=== PATIENT | male | born 1960 | race Caucasian/White ===

== ENCOUNTER 2017-09-23 08:24 | Observation (INO) ==
[2017-09-23] MEDS ORDERED: HYDROmorphone PF Inj 1 MG/ML Ampul IV.PUSH ONE ×2 (08:41→13:02)
[2017-09-23 08:45] LABS: Baso % (Auto) 0.5 % (0.0-2.0); Eos # (Auto) 0.5 th/mm3 (0.0-0.4); Eos % (Auto) 5.7 % (0.0-4.0); Hemoglobin 16.3 gm/dL (13.0-17.0); Lymph % (Auto) 21.7 % (9.0-44.0); Mean Corpuscular HGB Conc 33.3 % (32.0-36.0); Mean Corpuscular Hemoglobin 31.5 pg (27.0-34.0); Mean Corpuscular Volume 94.7 fL (80.0-100.0); Mean Platelet Volume 9.4 fL (7.0-11.0); Mono # (Auto) 0.6 th/mm3 (0.0-0.9); Mono % (Auto) 7.1 % (0.0-8.0); Platelet Count 190 th/mm3 (150-450); Red Blood Count 5.18 mil/mm3 (4.50-5.90); Red Cell Distribution Width 12.5 % (11.6-17.2); White Blood Count 9.1 th/mm3 (4.0-11.0)
[2017-09-23 08:53] LABS: Chloride 102 meq/L (98-107); Potassium 3.9 meq/L (3.5-5.1); Sodium 138 meq/L (136-145)
[2017-09-23 08:56] LABS: Calcium 9.4 mg/dL (8.5-10.1)
[2017-09-23 08:57] LABS: Albumin 4.3 g/dL (3.4-5.0); Anion Gap 7 meq/L (5-15); Blood Urea Nitrogen 9 mg/dL (7-18); Carbon Dioxide 29.1 meq/L (21.0-32.0); Glucose,Random 133 mg/dL (74-106); Magnesium 2.1 mg/dL (1.5-2.5)
[2017-09-23 08:58] LABS: Activated Partial Thrombo Time 29.8 sec (24.3-30.1); Prothrombin Time 9.7 sec (9.8-11.6)
[2017-09-23 09:00] LABS: Alanine Aminotransferase 27 U/L (12-78); Aspartate Aminotransferase 16 U/L (15-37); Glomerular Filtration Rate 63 mL/min (>89)
[2017-09-23 09:02] LABS: Total Protein 7.9 g/dL (6.4-8.2)
[2017-09-23 09:03] LABS: Alkaline Phosphatase 91 U/L (45-117)
[2017-09-23 09:04] LABS: Creatine Kinase 167 U/L (39-308)
[2017-09-23 09:05] LABS: Lipase 218 U/L (73-393)
[2017-09-23 09:17] LABS: Creatine Kinase MB 0.9 ng/mL (0.5-3.6)
--- NOTE | 2017-09-23 09:41 | XR ---
EXAM DATE: 09/23/2017 8:51 AM EDT AGE/SEX: 56 years / Male INDICATIONS: Chest pain and nausea today. CLINICAL DATA: This is the patient's initial encounter. Patient reports that signs and symptoms have been present for 1 day and indicates a pain score of 10/10. MEDICAL/SURGICAL HISTORY: None. None. COMPARISON: No prior exams available for comparison. FINDINGS: A single AP view of the chest demonstrates the lungs to be symmetrically aerated without evidence of mass, infiltrate or effusion. The cardiomediastinal contours are unremarkable. Osseous structures a re intact. CONCLUSION: No acute cardiopulmonary process Electronically signed by: Rohit Dee MD 09/23/2017 9:39 AM EDT
--- NOTE | 2017-09-23 12:48 | CT ---
EXAM DATE: 09/23/2017 12:39 PM EDT AGE/SEX: 56 years / Male INDICATIONS: Upper abdominal pain. CLINICAL DATA: This is the patient's initial encounter. Patient reports that signs and symptoms have been present for 1 day and indicates a pain score of 9/10. MEDICAL/SURGICAL HISTORY: None. Appendectomy. ORAL CONTRAST: No oral contrast ingested. RADIATION DOSE: 21.46 CTDI (mGy) COMPARISON: No prior exams available for comparison. TECHNIQUE: Multiple contiguous axial images were obtained through the abdomen and pelvis following b olus infusion of 95 ml Omnipaque 350 (iohexol) nonionic water-soluble contrast as a single exam dos e. No oral contrast ingested. Using automated exposure control and adjustment of the mA and/or kV ac cording to patient size, radiation dose was kept as low as reasonably achievable to obtain optimal di agnostic quality images. DICOM format image data is available electronically for review and comparis on. FINDINGS: Lower Lungs: Mild bibasilar atelectasis. Liver: The liver has a homogeneous density without space-occupying lesion. There is no dilation of th e biliary tree. Possible small stone in the gallbladder. Otherwise, the gallbladder is unremarkable. No inflammatory changes. Spleen: Homogeneous density without enlargement. Pancreas: Unremarkable without mass or calcification. Kidneys: Normal in size and shape. No evidence of mass or hydronephrosis. No calcified renal stones are demonstrated. The ureters are nondilated. Adrenal Glands: Unremarkable. Aorta: The aorta and proximal iliac vessels are grossly unremarkable without aneurysmal dilation. Bowel/Mesentery: The bowel loops are grossly unremarkable. The cecum and sigmoid colon have a normal configuration. A few scattered diverticula are seen along the sigmoid colon. No inflammatory changes are demonstrated. There is stool throughout the colon. Abdominal Wall: Intact. Retroperitoneum: No evidence of adenopathy in the retrocrural, para-aortic, or deep pelvic regions. Bladder: Contours are smooth. Reproductive Organs: No abnormal masses or calcifications seen. Inguinal: The inguinal region is unremarkable without evidence of adenopathy. Bony Structures: Primary degenerative changes with some curvature of the lumbar spine to the left. CONCLUSION: 1. Possible small gallstone in the gallbladder. No biliary tract obstruction. 2. A few scattered diverticula along the sigmoid colon. 3. Otherwise, unremarkable exam for patient's age. Electronically signed by: Mamadou Greco MD 09/23/2017 12:47 PM EDT
[2017-09-23] MEDS ORDERED: Diatrizoate Meglum/Diatrizoate Sod Liq 9 ML UDC PO ONE (13:15)
[2017-09-23] MEDS ORDERED: Acetaminophen 325 MG Tablet PO PRN (15:20)
[2017-09-23] MEDS ORDERED: Bisacodyl 10 MG Supp RECTAL PRN (15:20)
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
[2017-09-23] MEDS: Sod Chloride 0.9% Inj 1,000 ML IV.CONT SCH (16:25)
--- NOTE | 2017-09-23 16:40 | ECG ---
Date Performed: 09/23/2017 Time Performed: 08:32:05 PTAGE: 56 years EKG: Sinus rhythm WITH SINUS ARRHYTHMIA NORMAL ECG NO PREVIOUS TRACING DOCTOR: Beth Webster Interpretating Date/Time 09/23/2017 16:38:26
[2017-09-23] MEDS: HYDROmorphone PF Inj 1 MG/ML Ampul IV.PUSH PRN ×2 (17:55→23:12)
[2017-09-23] MEDS: Senna/Docusate Sodium 8.6/50 MG Tablet PO SCH (21:25)
[2017-09-24] MEDS: Sod Chloride 0.9% Inj 1,000 ML IV.CONT SCH ×3 (01:23→23:08)
[2017-09-24 06:52] LABS: Baso % (Auto) 0.6 % (0.0-2.0); Eos # (Auto) 0.3 th/mm3 (0.0-0.4); Eos % (Auto) 3.5 % (0.0-4.0); Hematocrit 42.6 % (39.0-51.0); Hemoglobin 14.7 gm/dL (13.0-17.0); Lymph # (Auto) 1.5 th/mm3 (1.0-4.8); Lymph % (Auto) 19.5 % (9.0-44.0); Mean Corpuscular HGB Conc 34.6 % (32.0-36.0); Mean Corpuscular Hemoglobin 32.5 pg (27.0-34.0); Mean Corpuscular Volume 93.9 fL (80.0-100.0); Mean Platelet Volume 9.6 fL (7.0-11.0); Mono # (Auto) 0.7 th/mm3 (0.0-0.9); Mono % (Auto) 9.1 % (0.0-8.0); Neut # (Auto) 5.4 th/mm3 (1.8-7.7); Neut % (Auto) 67.3 % (16.0-70.0); Platelet Count 174 th/mm3 (150-450); Red Blood Count 4.53 mil/mm3 (4.50-5.90); Red Cell Distribution Width 12.5 % (11.6-17.2); White Blood Count 7.9 th/mm3 (4.0-11.0)
[2017-09-24 07:02] LABS: Potassium 3.8 meq/L (3.5-5.1)
[2017-09-24 07:21] LABS: Calcium 8.4 mg/dL (8.5-10.1); Carbon Dioxide 27.1 meq/L (21.0-32.0)
--- NOTE | 2017-09-24 09:21 | P.PNIM ---
Subjective Interval history: Follow-up abdominal pain, nausea and vomiting. Patient seen and examined, lying in bed comfortably no apparent distress. Patient is a admit to intermittent abdominal pain worse with movement. Gallbladder ultrasound done today, showing dilated duct. Consult placed to gastroenterology, input and recommendations pending. Likely ERCP. Vital signs stable. Afebrile. Continue to monitor. Physical Exam Vital signs: Vital Signs 09/23/17 09:25 09/23/17 09:28 09/23/17 09:49 Temperature Pulse Rate 58 L 67 Respiratory Rate 16 16 Blood Pressure 155/88 H Pulse Oximetry 100 09/23/17 10:53 09/23/17 11:41 09/23/17 12:05 Temperature Pulse Rate 83 64 85 Respiratory Rate 16 16 Blood Pressure 177/81 H 167/89 H Pulse Oximetry 98 98 09/23/17 13:00 09/23/17 14:00 09/23/17 14:13 Temperature Pulse Rate 85 65 Respiratory Rate 16 16 16 Blood Pressure 175/100 H 141/81 H Pulse Oximetry 98 97 09/23/17 14:19 09/23/17 15:07 09/23/17 15:45 Temperature Pulse Rate 68 93 H Respiratory Rate 16 16 Blood Pressure 164/87 H 161/98 H Pulse Oximetry 97 97 96 09/23/17 16:00 09/23/17 18:00 09/23/17 18:25 Temperature 97.4 F L Pulse Rate 63 70 Respiratory Rate 18 18 Blood Pressure 165/87 H Pulse Oximetry 96 96 09/23/17 20:00 09/23/17 20:30 09/24/17 00:00 Temperature 98.2 F 98.1 F Pulse Rate 75 78 Respiratory Rate 16 16 Blood Pressure 138/80 120/75 Pulse Oximetry 95 95 97 09/24/17 04:00 Temperature 99 F Pulse Rate 75 Respiratory Rate 16 Blood Pressure 115/63 Pulse Oximetry 98 Intake & Output 09/23/17 09/24/17 09/24/17 18:59 06:59 18:59 Intake Total 340 / 340 1000 / 1000 Balance 340 / 340 1000 / 1000 Weight 72 kg Intake: IV 1000 / 1000 NS Inj 1,000 ML @ 100 mls/hr IV 1000 / 1000 .CONT .Q10H [facility] Rx#:[id number] Oral 100 / 100 0 / 0 Oral Supplement 240 / 240 Other: Post Void Residual 300 Date of Last Bowel Movement 09/23/17 Weight On Admission 72 kg Narrative: GENERAL: Well-developed, well-nourished patient in NAD. SKIN: Warm and dry. No rash. HEAD: Normocephalic. Atraumatic. EYES: Pupils equal and round. No scleral icterus. No injection or drainage. ENT: No nasal bleeding or discharge. Mucous membranes pink and moist. NECK: Supple. Trachea midline. CARDIOVASCULAR: Regular rate and rhythm. S1, S2 noted. No murmur appreciated. RESPIRATORY: No accessory muscle use. Clear to auscultation. Breath sounds equal bilaterally. GASTROINTESTINAL: Abdomen soft, nondistended. Normoactive bowel sounds x4. Mild tenderness to palpation in right upper quadrant and right lower quadrant. MUSCULOSKELETAL: No obvious deformities. Extremities without clubbing, cyanosis , or edema. NEUROLOGICAL: Awake and alert. No obvious cranial nerve deficits. Motor grossly within normal limits. 5/5 muscle strength in bilateral upper and lower extremities. Normal speech. PSYCHIATRIC: Appropriate mood and affect; insight and judgment normal. Results - Labs CBC & Chem 7: 09/24/17 06:34 09/24/17 06:34 Laboratory Results - last 24 hr 09/24/17 09/24/17 06:34 06:34 CBC w Diff Auto diff final WBC 7.9 RBC 4.53 Hgb 14.7 Hct 42.6 MCV 93.9 MCH 32.5 MCHC 34.6 RDW 12.5 Plt Count 174 MPV 9.6 Neut % (Auto) 67.3 Lymph % (Auto) 19.5 [place] % (Auto) 9.1 H Eos % (Auto) 3.5 Baso % (Auto) 0.6 Neut # (Auto) 5.4 Lymph # (Auto) 1.5 [place] # (Auto) 0.7 Eos # (Auto) 0.3 Baso # (Auto) 0.0 WBC Differential . Differential Comment . Sodium 140 Potassium 3.8 Chloride 105 Carbon Dioxide 27.1 Anion Gap 8 BUN 8 Creatinine 1.20 Estimated GFR 63 L Random Glucose 104 Calcium 8.4 L D - Imaging Impressions Chest X-Ray 09/23/17 08:34 CONCLUSION: No acute cardiopulmonary process Abdomen/Pelvis CT 09/23/17 10:15 CONCLUSION: 1. Possible small gallstone in the gallbladder. No biliary tract obstruction. 2. A few scattered diverticula along the sigmoid colon. 3. Otherwise, unremarkable exam for patient's age. Assessment and Plan - Assessment (1) Abdominal pain Code(s): R10.9 - Unspecified abdominal pain Status: Acute (2) Nausea and vomiting Code(s): R11.2 - Nausea with vomiting, unspecified Status: Acute - Plan This is a 56-year-old male patient with: Abdominal pain with associated nausea and vomiting -Unknown etiology. -Liver enzymes reviewed, normal. -Abdominal CT reviewed showing possible small gallstone. No biliary tract obstruction. Otherwise unremarkable. -Chest x-ray reviewed showing no acute disease. -Gallbladder ultrasound reviewed showing dilated common bile duct 12 mm. Gallstones present. Consult placed to gastroenterology, input recommendations pending. Likely will need ERCP. - Control nausea, Zofran available as needed. - Dilaudid IV available as needed per pain scale. Chest pain, atypical likely related to above. Resolved. - Initial troponin flat. - EKG reviewed showing controlled heart rate, no ST changes to indicate ischemia. No arrhythmias. - Continue cardiac telemetry, monitor for any arrhythmias. No arrhythmias overnight. - Was given aspirin in ED. Will start on daily aspirin. Hypertension: Likely secondary to pain. Will monitor blood pressure trends. Alcohol abuse: Encouraged cessation. DVT prophylaxis: SCDs. Ambulation. Discharge Planning: Awaiting clinical improvement. Gastroenterology consulted. (1) Abdominal pain Qualifiers: Abdominal location: epigastric Qualified Code(s): R10.13 - Epigastric pain (2) Nausea and vomiting Qualifiers: Vomiting type: unspecified Vomiting Intractability: intractable Qualified Code(s): R11.2 - Nausea with vomiting, unspecified
[2017-09-24] MEDS: Senna/Docusate Sodium 8.6/50 MG Tablet PO SCH ×2 (10:44→20:26)
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
[2017-09-24] MEDS: HYDROmorphone PF Inj 1 MG/ML Ampul IV.PUSH PRN ×2 (16:16→20:54)
--- NOTE | 2017-09-24 18:56 | MB ---
cc: Heath Shepard MD DATE: 09/24/2017 REFERRING PHYSICIAN: Dr. Johnson. REASON FOR REFERRAL: Abdominal pain. Thank you for the consultation. HISTORY OF PRESENT ILLNESS: A 56-year-old gentleman who has been in good health until recently about few days ago, started having abdominal pain. He said the pain started in the right lower quadrant, but then he stated that it radiated to the mid abdomen and then to the left lower quadrant and then to his mid epigastric area. The patient felt that the pain was stabbing, knife-like, sharp, 10/10 and associated with some nausea, no vomiting, no rectal bleeding, no sign of gastrointestinal bleed, no other symptoms and he came to the emergency room. Since then, he was given some pain medication, which gave him relief. He still has some discomfort, but much better than before. The patient stated was not related to food. The pain was alleviated with pain medication. He had some vomiting, but no hematemesis. PAST SURGICAL HISTORY: Significant for appendectomy. He had a surgery to his mandibular area. FAMILY HISTORY: Significant for pancreatitis, negative otherwise. PAST MEDICAL HISTORY: No other medical problems. Does not take medication. REVIEW OF SYSTEMS: All 12-point negative except HPI. SOCIAL HISTORY: Positive for half pack a day. Occasional alcohol, maybe 1-2 beers a day. No drugs. No recent travel. ALLERGIES: CODEINE. MEDICATIONS: None. REVIEW OF SYSTEMS: All 12-point negative except for HPI. PHYSICAL EXAMINATION: GENERAL: Alert, oriented, in no acute distress. VITAL SIGNS: Stable at this time. HEENT: Pupils round, reactive to light. NECK: Supple. CHEST: Clear to auscultation and percussion. CARDIAC: Regular rate and rhythm. No murmur or gallops. ABDOMEN: Soft, minimal tenderness in the epigastric area and left lower quadrant. No hepatosplenomegaly. The patient is morbidly obese. EXTREMITIES: No edema, clubbing or cyanosis. NEUROLOGIC: Alert and oriented. No abnormality. No focal deficit. PSYCHIATRIC: Psychologically appropriate. LABORATORY DATA: Normal liver function tests including total bilirubin of 0.5, AST 16, ALT 27, alkaline phosphatase 91, lipase 218. INR 1.0. CBC completely normal with white blood cell 7.9, hemoglobin 14.7. IMAGING STUDIES: CT scan showed possible small gallstone in the gallbladder. No biliary tract obstruction. Some diverticulosis, otherwise unremarkable. No dilation in the biliary tree on the CT scan. The patient had ultrasound which showed possible dilation of the common bile duct with possible cholecystitis and thickening of the gallbladder wall. ASSESSMENT AND PLAN: A 56-year-old gentleman with abdominal pain, questionable etiology, could be that he passed a stone and mild pancreatitis. He does not have elevation of the liver function tests and the CT scan did not show dilation. The ultrasound showed questionable dilation, but it seems that it was technically difficult to evaluate the duct completely. Because of that, I would like to perform an MRCP to evaluate the common bile duct more thoroughly and accurately before committing the patient for an ERCP. Currently, the patient is doing better. His symptoms are improving, so we can give him clear liquid pending the MRCP. If the MRCP show dilation of the biliary tree or any abnormality suspicious for stones, then he will need to be transferred to the main hospital for an ERCP. The patient understands the plan and we will follow up with you. MD SONU Alatorre/YOSELIN , 06:36 PM , 06:55 PM
[2017-09-25] MEDS: HYDROmorphone PF Inj 1 MG/ML Ampul IV.PUSH PRN ×2 (06:40→23:42)
[2017-09-25] MEDS: Senna/Docusate Sodium 8.6/50 MG Tablet PO SCH ×2 (09:20→20:26)
[2017-09-25] MEDS: Sod Chloride 0.9% Inj 1,000 ML IV.CONT SCH (09:25)
--- NOTE | 2017-09-25 10:36 | MR ---
EXAM DATE: 09/25/2017 10:28 AM EDT AGE/SEX: 56 years / Male INDICATIONS: Abdominal pain. Nausea and vomiting. CLINICAL DATA: This is the patient's initial encounter. Patient reports that signs and symptoms have been present for 1 day and indicates a pain score of 6/10. MEDICAL/SURGICAL HISTORY: None. Appendectomy. COMPARISON: No prior exams available for comparison. TECHNIQUE: Multiplanar, multisequence images of the abdomen were obtained without contrast including dedicated cholangiographic images. FINDINGS: The liver and spleen are normal in size and no focal defects are identified. There are multiple gall stones within the gallbladder without wall thickening or pericholecystic fluid the largest measuring 4 mm. The pancreas demonstrates no evidence of mass and there is no dilatation of the pancreatic duct . Examination of biliary tree with multiplanar and 3-D reconstruction demonstrates no evidence of com mon duct stone. No intrahepatic or extra hepatic ductal dilatation is identified. The pancreatic duct is unremarkable. The adrenal glands and kidneys appear normal bilaterally. No hydronephrosis or mas s lesions are identified. CONCLUSION: 1. Cholelithiasis without common duct stone Electronically signed by: Chicho Martinez MD 09/25/2017 10:34 AM EDT
--- NOTE | 2017-09-25 11:51 | P.PNIM ---
Subjective Interval history: Follow-up abdominal pain and cholelithiasis. Patient seen and examined, lying in bed comfortably no apparent distress. Symptoms have improved. MRCP done today showing no common bile duct stone although with cholelithiasis. Gastroenterology following. Vital signs stable. Afebrile. Physical Exam Vital signs: Vital Signs 09/24/17 12:00 09/24/17 16:00 09/24/17 16:46 Temperature 97.7 F 97.7 F Pulse Rate 60 66 Respiratory Rate 18 18 18 Blood Pressure 123/71 116/68 Pulse Oximetry 94 L 95 09/24/17 20:00 09/24/17 20:58 09/24/17 21:24 Temperature 98.0 F Pulse Rate 84 Respiratory Rate 20 18 Blood Pressure 127/71 Pulse Oximetry 97 95 09/25/17 00:00 09/25/17 04:12 09/25/17 07:59 Temperature 98.7 F 98.8 F 96.9 F L Pulse Rate 77 74 69 Respiratory Rate 18 18 20 Blood Pressure 130/75 131/61 120/73 Pulse Oximetry 94 L 96 93 L 09/25/17 11:25 Temperature 97.6 F Pulse Rate 58 L Respiratory Rate 20 Blood Pressure 131/76 Pulse Oximetry 95 Intake & Output 09/24/17 09/25/17 09/25/17 18:59 06:59 18:59 Intake Total 1700 / 1700 1000 / 1000 1000 / 1000 Output Total 550 / 550 Balance 1700 / 1700 450 / 450 1000 / 1000 Weight 180.34 kg Intake: IV 1000 / 1000 1000 / 1000 1000 / 1000 NS Inj 1,000 ML @ 100 mls/hr IV 1000 / 1000 1000 / 1000 1000 / 1000 .CONT .Q10H [facility] Rx#:[id number] Oral 100 / 100 Oral Supplement 600 / 600 Output: Urine 550 / 550 Other: # Voids 3 Narrative: GENERAL: Well-developed, well-nourished patient in NAD. SKIN: Warm and dry. No rash. HEAD: Normocephalic. Atraumatic. EYES: Pupils equal and round. No scleral icterus. No injection or drainage. ENT: No nasal bleeding or discharge. Mucous membranes pink and moist. NECK: Supple. Trachea midline. CARDIOVASCULAR: Regular rate and rhythm. S1, S2 noted. No murmur appreciated. RESPIRATORY: No accessory muscle use. Clear to auscultation. Breath sounds equal bilaterally. GASTROINTESTINAL: Abdomen soft, nondistended. Normoactive bowel sounds x4. No tenderness to palpation. MUSCULOSKELETAL: No obvious deformities. Extremities without clubbing, cyanosis , or edema. NEUROLOGICAL: Awake and alert. No obvious cranial nerve deficits. Motor grossly within normal limits. 5/5 muscle strength in bilateral upper and lower extremities. Normal speech. PSYCHIATRIC: Appropriate mood and affect; insight and judgment normal. - Constitutional no acute distress - Routine HEENT Exam Head: Present: normocephalic Eye: Present: EOMI ENT: Present: mucous membranes moist - Routine Neck Exam Present: supple Results - Labs CBC & Chem 7: 09/24/17 06:34 09/24/17 06:34 - Imaging Impressions Cholangiopancreatography MRI 09/25/17 00:00 CONCLUSION: 1. Cholelithiasis without common duct stone Assessment and Plan - Assessment (1) Abdominal pain Code(s): R10.9 - Unspecified abdominal pain Status: Acute (2) Nausea and vomiting Code(s): R11.2 - Nausea with vomiting, unspecified Status: Acute - Plan This is a 56-year-old male patient with: Abdominal pain with associated nausea and vomiting -Unknown etiology. Possibly related to cholelithiasis. -Liver enzymes reviewed, normal. -Abdominal CT reviewed showing possible small gallstone. No biliary tract obstruction. Otherwise unremarkable. -Chest x-ray reviewed showing no acute disease. -Gallbladder ultrasound reviewed showing dilated common bile duct 12 mm. Gallstones present. Consult placed to gastroenterology, appreciate input and recommendations. MRCP done today showing cholelithiasis without common duct stone. - Control nausea, Zofran available as needed. - Dilaudid IV available as needed per pain scale. Will wean. Chest pain, atypical likely related to above. Resolved. - Troponin flat. - EKG reviewed showing controlled heart rate, no ST changes to indicate ischemia. No arrhythmias. - Continue cardiac telemetry, monitor for any arrhythmias. No arrhythmias overnight. - Was given aspirin in ED. Will start on daily aspirin. Hypertension: Likely secondary to pain. Will monitor blood pressure trends. Alcohol abuse: Encouraged cessation. No signs of withdrawal. Pleasant. DVT prophylaxis: SCDs. Ambulation. Discharge Planning: Awaiting clinical improvement and further gastroenterology recs. (1) Abdominal pain Qualifiers: Abdominal location: epigastric Qualified Code(s): R10.13 - Epigastric pain (2) Nausea and vomiting Qualifiers: Vomiting type: unspecified Vomiting Intractability: intractable Qualified Code(s): R11.2 - Nausea with vomiting, unspecified
--- NOTE | 2017-09-25 16:07 | P.DS ---
Date of admission: 09/23/17 14:41 Primary care physician: No Primary Care Physician Brief History from admission: This is a 56-year-old male patient with no known medical history presented to the ED with complaints of abdominal pain, nausea and vomiting. Patient states roughly around 4 AM this morning he woke out of sleep with severe right lower quadrant abdominal pain that radiated to his mid epigastric area. Patient states that the pain was knifelike and stabbing in nature, was constant and worsens when he ate or drink anything. Patient rates the pain a 10 out of 10 on pain scale. He states that he related to his symptoms initially to gas, state he took a couple Pepto Bismol tablets which were not effective to relieve his symptoms. Patient denies any diarrhea. Last bowel movement was this morning. He denies any blood or black stools. Denies any recent fever, chills , cough, shortness of breath, dysuria. Patient denies any history of colonoscopy or EGD in the past. Does admit to hemorrhoids. Does not follow with the PCP. Does not have any medical problems. Has a history of appendectomy as a child. Smokes half pack per day cigarettes since his teen years. Patient symptoms have improved since presentation in the ED and pain medication. Patient also admits to associated chest discomfort this morning. He states that the chest discomfort was likely related to the mid epigastric pain, was burning in nature, associated with shortness of breath and diaphoresis and resolved at the current time. Denies any history of cardiovascular disease. Patient's EKG on presentation is sinus rhythm, no ST changes to indicate any ischemia. Does admit to binge drinking, states he drank several alcoholic drinks prior to presentation. DS: Diagnosis - Discharge Diagnosis (1) Abdominal pain Status: Acute (2) Nausea and vomiting Status: Acute DS: Summary Hospital Course: This is a 56-year-old male patient with abdominal pain with associated nausea and vomiting. Symptoms possibly related to cholelithiasis. Liver enzymes reviewed, normal. Abdominal CT reviewed showing possible small gallstone. No biliary tract obstruction. Otherwise unremarkable. Chest x-ray reviewed showing no acute disease. Gallbladder ultrasound reviewed showing dilated common bile duct 12 mm. Gallstones present. Gastroenterology saw patient during hospitalization. MRCP done showing cholelithiasis without common duct stone. Zofran was given for nausea. Dilaudid was also given for pain per pain scale. Patient did have some chest pain that was atypical and resolved troponin flat. EKG reviewed showing controlled heart rate, no ST changes to indicate ischemia. No arrhythmias. No arrhythmias started on daily aspirin. Had some hypertension during hospitalization. Likely secondary to pain. This stabilized prior to discharge. Patient does have history of alcohol abuse. Encourage cessation. No signs of withdrawal during hospitalization. All symptoms have resolved. Tolerating p.o. intake well. Will discharge home to follow-up with GI as well as PCP. - Time Spent with Patient Total time spent providing and/or coordinating discharge services: Greater than 30 minutes - Quality: VTE Deep Vein Thrombosis/Pulmonary Embolism Present on Admission: No Exam Vital signs: Vital Signs 09/24/17 16:46 09/24/17 20:00 09/24/17 20:58 Temperature 98.0 F Pulse Rate 84 Respiratory Rate 18 20 Blood Pressure 127/71 Pulse Oximetry 97 95 09/24/17 21:24 09/25/17 00:00 09/25/17 04:12 Temperature 98.7 F 98.8 F Pulse Rate 77 74 Respiratory Rate 18 18 18 Blood Pressure 130/75 131/61 Pulse Oximetry 94 L 96 09/25/17 07:59 09/25/17 11:25 09/25/17 14:32 Temperature 96.9 F L 97.6 F Pulse Rate 69 58 L Respiratory Rate 20 20 Blood Pressure 120/73 131/76 Pulse Oximetry 93 L 95 96 09/25/17 15:10 Temperature 97.2 F L Pulse Rate 77 Respiratory Rate 20 Blood Pressure 138/75 Pulse Oximetry 98 Intake & Output 09/24/17 09/25/17 09/25/17 18:59 06:59 18:59 Intake Total 1700 / 1700 1000 / 1000 1000 / 1000 Output Total 550 / 550 Balance 1700 / 1700 450 / 450 1000 / 1000 Weight 180.34 kg Intake: IV 1000 / 1000 1000 / 1000 1000 / 1000 NS Inj 1,000 ML @ 100 mls/hr IV 1000 / 1000 1000 / 1000 1000 / 1000 .CONT .Q10H [facility] Rx#:[id number] Oral 100 / 100 Oral Supplement 600 / 600 Output: Urine 550 / 550 Other: # Voids 3 Narrative: GENERAL: Well-developed, well-nourished patient in [facility]. SKIN: Warm and dry. No rash. HEAD: Normocephalic. Atraumatic. EYES: Pupils equal and round. No scleral icterus. No injection or drainage. ENT: No nasal bleeding or discharge. Mucous membranes pink and moist. NECK: Supple. Trachea midline. CARDIOVASCULAR: Regular rate and rhythm. S1, S2 noted. No murmur appreciated. RESPIRATORY: No accessory muscle use. Clear to auscultation. Breath sounds equal bilaterally. GASTROINTESTINAL: Abdomen soft, non-tender, nondistended. Normoactive bowel sounds x4. MUSCULOSKELETAL: No obvious deformities. Extremities without clubbing, cyanosis , or edema. NEUROLOGICAL: Awake and alert. No obvious cranial nerve deficits. Motor grossly within normal limits. 5/5 muscle strength in bilateral upper and lower extremities. Normal speech. PSYCHIATRIC: Appropriate mood and affect; insight and judgment normal. Results Procedures completed during hospitalization: See below. - Impressions ITS Impressions Chest X-Ray 09/23/17 08:34 CONCLUSION: No acute cardiopulmonary process Abdomen/Pelvis CT 09/23/17 10:15 CONCLUSION: 1. Possible small gallstone in the gallbladder. No biliary tract obstruction. 2. A few scattered diverticula along the sigmoid colon. 3. Otherwise, unremarkable exam for patient's age. Gallbladder Ultrasound 09/24/17 00:00 CONCLUSION: 1. Stones in the gallbladder gallbladder wall thickening and dilated common duct. 2. Cholecystitis with common duct stone is suspected. Cholangiopancreatography MRI 09/25/17 00:00 CONCLUSION: 1. Cholelithiasis without common duct stone Discharge Plan - Discharge Disposition Patient Disposition: 01 Discharge Home - Discharge Condition Condition: Good - Discharge Order Discharge Orders: Discharge Order (Routine); Ordered 09/25/17 Ordered By: Deborah Cho - Discharge Details Anticipated Discharge Date: 09/25/17 Discharge Comment: If tolerating PO intake without abdominal pain or vomiting patinent can be DCd per GI. - Physicians Team Primary Care Provider: Primary Care Physici,No Attending Provider: Elham Majano Other Providers: Frank Choi MD
--- NOTE | 2017-09-25 18:02 | XR ---
EXAM DATE: 09/25/2017 5:54 PM EDT AGE/SEX: 56 years / Male INDICATIONS: Abdominal pain with black stool today. CLINICAL DATA: This is the patient's subsequent encounter. Patient reports that signs and symptoms h ave been present for 4 - 6 days and indicates a pain score of 6/10. MEDICAL/SURGICAL HISTORY: None. Appendectomy. COMPARISON: No prior exams available for comparison. FINDINGS: The abdominal bowel gas pattern is normal. No abnormal masses or organomegaly is seen. Calcificati ons are seen in the right lower quadrant. These appear inferior to the right renal shadow. There is d egenerative change of the lower lumbar spine. CONCLUSION: Nonspecific calcific indications and the right lower quadrant of the abdomen. Electronically signed by: Gee Dubose MD 09/25/2017 6:00 PM EDT
--- NOTE | 2017-09-25 18:42 | P.PNGI ---
Subjective Interval history: Patient still complaining of significant diarrhea, still having black stool and abdominal discomfort mostly in the left lower quadrant and midepigastric area with some nausea Physical Exam Vital signs: Vital Signs 09/24/17 20:00 09/24/17 20:58 09/24/17 21:24 Temperature 98.0 F Pulse Rate 84 Respiratory Rate 20 18 Blood Pressure 127/71 Pulse Oximetry 97 95 09/25/17 00:00 09/25/17 04:12 09/25/17 07:59 Temperature 98.7 F 98.8 F 96.9 F L Pulse Rate 77 74 69 Respiratory Rate 18 18 20 Blood Pressure 130/75 131/61 120/73 Pulse Oximetry 94 L 96 93 L 09/25/17 11:25 09/25/17 14:32 09/25/17 15:10 Temperature 97.6 F 97.2 F L Pulse Rate 58 L 77 Respiratory Rate 20 20 Blood Pressure 131/76 138/75 Pulse Oximetry 95 96 98 Intake & Output 09/24/17 09/25/17 09/25/17 18:59 06:59 18:59 Intake Total 1700 / 1700 1000 / 1000 1840 / 1840 Output Total 550 / 550 Balance 1700 / 1700 450 / 450 1840 / 1840 Weight 180.34 kg Intake: IV 1000 / 1000 1000 / 1000 1000 / 1000 NS Inj 1,000 ML @ 100 mls/hr IV 1000 / 1000 1000 / 1000 1000 / 1000 .CONT .Q10H [facility] Rx#:[id number] Oral 100 / 100 840 / 840 Oral Supplement 600 / 600 Output: Urine 550 / 550 Other: # Voids 3 4 # Bowel Movements 1 - Constitutional no acute distress - Routine HEENT Exam Head: Present: normocephalic Eye: Present: EOMI - Routine Neck Exam Present: supple - Routine Respiratory Exam Present: CTA bilaterally - Routine Cardiovascular Exam Present: RRR - Routine Abdominal Exam Present: soft (Mild tenderness in the midepigastric area and left lower quadrant with positive bowel sounds) - Routine Skin Exam Present: intact, warm - Routine Neurological Exam Present: alert, oriented X3, CN II-XII intact, normal tone - Routine Psychiatric Exam Present: normal affect Results - Labs CBC & Chem 7: 09/24/17 06:34 09/24/17 06:34 - Imaging Impressions Abdomen X-Ray 09/25/17 00:00 CONCLUSION: Nonspecific calcific indications and the right lower quadrant of the abdomen. Cholangiopancreatography MRI 09/25/17 00:00 CONCLUSION: 1. Cholelithiasis without common duct stone - Procedures See below. Assessment and Plan - Plan Patient is 56-year-old gentleman with abdominal pain MRCP was negative for common bile duct stone or common bile duct dilation, still having diarrhea and black stool, I recommend doing upper endoscopy and colonoscopy for evaluation, we will plan on doing this tomorrow, will prep the patient I will check C. difficile to make sure that does not have C. difficile colitis causing his diarrhea
[2017-09-25] MEDS ORDERED: PEG 3350/E-Lyte Soln 4000 ML Bottle PO ONE (19:00)
[2017-09-25] MEDS ORDERED: Hydrocortisone/Pramoxine Foam 10 GM Can RECTAL PRN (21:34)
[2017-09-25] MEDS: Temazepam 15 MG Capsule PO PRN (22:02)
[2017-09-26] MEDS: Senna/Docusate Sodium 8.6/50 MG Tablet PO SCH ×2 (08:13→20:53)
--- NOTE | 2017-09-26 11:08 | P.PNIM ---
Subjective Interval history: Patient follow up for abdominal pain. Patient seen and examined, undergoing EGD and colonoscopy today. Still complaints of some upper right quad abdominal pain. VSS. Afebrile. Physical Exam Vital signs: Vital Signs 09/25/17 11:25 09/25/17 14:32 09/25/17 15:10 Temperature 97.6 F 97.2 F L Pulse Rate 58 L 77 Respiratory Rate 20 20 Blood Pressure 131/76 138/75 Pulse Oximetry 95 96 98 09/25/17 20:00 09/25/17 22:09 09/26/17 00:12 Temperature 97.4 F L Pulse Rate 76 Respiratory Rate 18 0 L Blood Pressure 168/88 H Pulse Oximetry 96 98 09/26/17 01:40 09/26/17 08:00 Temperature 97.3 F L 96.7 F L Pulse Rate 75 71 Respiratory Rate 20 16 Blood Pressure 113/63 125/81 Pulse Oximetry 95 96 Intake & Output 09/25/17 09/26/17 09/26/17 18:59 06:59 18:59 Intake Total 1840 / 1840 77605 / 65977 Output Total 1550 / 1550 Balance 1840 / 1840 20084 / 79967 Weight 180.3 kg Intake: IV 1000 / 1000 1000 / 1000 NS Inj 1,000 ML @ 100 mls/hr IV 1000 / 1000 1000 / 1000 .CONT .Q10H [facility] Rx#:[id number] Oral 840 / 840 480 / 480 Oral Supplement 13734 / 25144 Output: Urine 1550 / 1550 Other: # Voids 4 # Bowel Movements 1 3 Narrative: GENERAL: Well-developed, well-nourished patient in [facility]. SKIN: Warm and dry. No rash. HEAD: Normocephalic. Atraumatic. EYES: Pupils equal and round. No scleral icterus. No injection or drainage. ENT: No nasal bleeding or discharge. Mucous membranes pink and moist. NECK: Supple. Trachea midline. CARDIOVASCULAR: Regular rate and rhythm. S1, S2 noted. No murmur appreciated. RESPIRATORY: No accessory muscle use. Clear to auscultation. Breath sounds equal bilaterally. GASTROINTESTINAL: Abdomen soft, nondistended. Normoactive bowel sounds x4. No tenderness to palpation. MUSCULOSKELETAL: No obvious deformities. Extremities without clubbing, cyanosis , or edema. NEUROLOGICAL: Awake and alert. No obvious cranial nerve deficits. Motor grossly within normal limits. 5/5 muscle strength in bilateral upper and lower extremities. Normal speech. PSYCHIATRIC: Appropriate mood and affect; insight and judgment normal. - Constitutional no acute distress - Routine HEENT Exam Head: Present: normocephalic Eye: Present: EOMI ENT: Present: mucous membranes moist - Routine Neck Exam Present: supple Results - Labs CBC & Chem 7: 09/24/17 06:34 09/24/17 06:34 - Imaging Impressions Abdomen X-Ray 09/25/17 00:00 CONCLUSION: Nonspecific calcific indications and the right lower quadrant of the abdomen. - Procedures See below. Assessment and Plan - Assessment (1) Abdominal pain Code(s): R10.9 - Unspecified abdominal pain Status: Acute (2) Nausea and vomiting Code(s): R11.2 - Nausea with vomiting, unspecified Status: Acute - Plan This is a 56-year-old male patient with: Abdominal pain with associated nausea and vomiting -Unknown etiology. Possibly related to cholelithiasis. -Liver enzymes reviewed, normal. -Abdominal CT reviewed showing possible small gallstone. No biliary tract obstruction. Otherwise unremarkable. -Chest x-ray reviewed showing no acute disease. -Gallbladder ultrasound reviewed showing dilated common bile duct 12 mm. Gallstones present. - Consult placed to gastroenterology, appreciate input and recommendations. MRCP done showing cholelithiasis without common duct stone. - Control nausea, Zofran available as needed. - Dilaudid IV available as needed per pain scale. Will wean. - Plan for EGD and colonoscopy today. Chest pain, atypical likely related to above. Resolved. - Troponin flat. - EKG reviewed showing controlled heart rate, no ST changes to indicate ischemia. No arrhythmias. - Continue cardiac telemetry, monitor for any arrhythmias. No arrhythmias overnight. - Was given aspirin in ED. Continue on aspirin. Hypertension: Likely secondary to pain. Will monitor blood pressure trends. Alcohol abuse: Encouraged cessation. No signs of withdrawal. Pleasant. DVT prophylaxis: SCDs. Ambulation. Discharge Planning: Awaiting clinical improvement and further gastroenterology recs. (1) Abdominal pain Qualifiers: Abdominal location: epigastric Qualified Code(s): R10.13 - Epigastric pain (2) Nausea and vomiting Qualifiers: Vomiting type: unspecified Vomiting Intractability: intractable Qualified Code(s): R11.2 - Nausea with vomiting, unspecified
[2017-09-26] MEDS ORDERED: Lidocaine PF 1% Inj 5 ML Syringe INFILTRATN ONE (12:00)
[2017-09-26] MEDS ORDERED: Metoprolol Tartrate 25 MG Tablet PO SCH (17:15)
[2017-09-26] MEDS ORDERED: Chlorhexidine Gluconate 2% 1 Pack (2 Cloths) TOPICAL SCH (17:15)
[2017-09-26] MEDS ORDERED: Sodium Chlor 0.9% Inj 500 ML IV.SIG SCH (18:00)
--- NOTE | 2017-09-26 18:54 | GIPROC ---
[facility] [address] [place] [address], [id number] COLONOSCOPY PROCEDURE REPORT EXAM DATE: 09/26/2017 PATIENT NAME: Fredy Stephen MR #: [id number] BIRTHDATE: 1960 ENDOSCOPIST: Heath Shepard MD ORDER #: [id number] HOT OILER: Jonah Sorensen STATUS: inpatient INDICATIONS: The patient is a 56 yr old male here for a colonoscopy due to PROCEDURE PERFORMED: Injection of dye MEDICATIONS: None and Per Anesthesia. PREP QUALITY: fair ESTIMATED BLOOD LOSS: None CONSENT: The patient understands the risks and benefits of the procedure and understands that these risks include, but are not limited to: sedation, allergic reaction, infection, perforation and/or bleeding. Alternative means of evaluation and treatment include, among others: physical exam, x-rays, and/or surgical intervention. The patient elects to proceed with this endoscopic procedure. medical equipment was checked for proper function. Hand hygiene and appropriate measures for infection prevention was taken. After the risks, benefits and alternatives of the procedure were thoroughly explained, Informed consent was verified, confirmed and timeout was successfully executed by the treatment team. A digital exam was performed The Pentax EC-[id number] endoscope was introduced through the anus and advanced to the cecum, which was identified by both the appendix and ileocecal valve. The instrument was then slowly withdrawn as the colon was fully examined. COLON FINDINGS: Some stool throughout the colon may interfere with division of small lesion Significant diverticular disease Large polyp in the sigmoid removed by snare and injected with dye Multiple polyp in the sigmoid ablated with heat Flat lesion not sure if this was inverted diverticulum versus polyp biopsy was done and injected with dye Small polyp in the ascending colon removed by snare. Retroflexed views revealed no abnormalities The scope was then completely withdrawn from the patient and the procedure terminated. ADVERSE EVENTS: There were no complications. IMPRESSIONS: 1. Some stool throughout the colon may interfere with division of small lesion Significant diverticular disease Large polyp in the sigmoid removed by snare and injected with dye Multiple polyp in the sigmoid ablated with heat Flat lesion not sure if this was inverted diverticulum versus polyp biopsy was done and injected with dye Small polyp in the ascending colon removed by snare 2. Retroflexed views revealed no abnormalities 3. Was performed RECOMMENDATIONS: 1. Await biopsy results. Biopsy results will not be ready for 7-10 days. If you don't hear from us in two weeks, call our office for results. 2. Await biopsy results. Biopsy results will not be ready for 7-10 days. If you don't hear from us in two weeks, call our office for results. 3. Colonoscopy in 3 months Okay to discharge home if patient tolerated diet 4. High fiber diet RECALL: Return 3 months Colonoscopy Heath Shepard MD eSigned: Heath Shepard MD 09/26/2017 6:53 PM cc: PATIENT NAME: Fredy Stephen MR#: [id number]
--- NOTE | 2017-09-26 18:56 | GIPROC ---
[facility] [address] [place] [address], [id number] EGD PROCEDURE REPORT EXAM DATE: 09/26/2017 PATIENT NAME: Fredy Stephen MR #: [id number] BIRTHDATE: 1960 ATTENDING: Heath Shepard MD ORDER #: [id number] [employer] ASSISTANT: Jonah Sorensen STATUS: inpatient INDICATIONS: The patient is a 56 yr old male here for an EGD due to Abdominal pain, dyspepsia, nausea PROCEDURE PERFORMED: EGD w/ biopsy MEDICATIONS: None and Per Anesthesia. TOPICAL ANESTHETIC: none CONSENT: The patient understands the risks and benefits of the procedure and understands that these risks include, but are not limited to: sedation, allergic reaction, infection, perforation and/or bleeding. Alternative means of evaluation and treatment include, among others: physical exam, x-rays, and/or surgical intervention. The patient elects to proceed with this endoscopic procedure. medical equipment was checked for proper function. Hand hygiene and appropriate measures for infection prevention was taken. After the risks, benefits and alternatives of the procedure were thoroughly explained, Informed consent was verified, confirmed and timeout was successfully executed by the treatment team. The patient was anesthetized with topical anesthesia and the EC-[id number] (Pedi C) endoscope was introduced through the mouth and advanced to the second portion of the duodenum. Retroflexed views revealed no abnormalities The gastroscope was then slowly withdrawn and removed. Normal EGD, biopsy to rule out H. pylori. ADVERSE EVENTS: There were no complications. IMPRESSIONS: 1. Normal EGD, biopsy to rule out H. pylori 2. Retroflexed views revealed no abnormalities RECOMMENDATIONS: 1. Await biopsy results. Biopsy results will not be ready for 7-10 days. If you don't hear from us in two weeks, call our office for biopsy results. 2. Anti-reflux regimen PATIENT CONDITION: stable DISPOSITION: Inpatient REPEAT EXAM: NONE Heath Shepard MD eSigned: Heath Shepard MD 09/26/2017 6:55 PM cc:
[2017-09-26] MEDS ORDERED: Zolpidem Tartrate 5 MG Tablet PO ONE (21:58)
[2017-09-26] MEDS: Temazepam 15 MG Capsule PO PRN (22:27)
[2017-09-26] MEDS: HYDROmorphone PF Inj 1 MG/ML Ampul IV.PUSH PRN (23:30)
[2017-09-27] MEDS: Senna/Docusate Sodium 8.6/50 MG Tablet PO SCH (08:10)
[2017-09-27] MEDS: HYDROmorphone PF Inj 1 MG/ML Ampul IV.PUSH PRN (08:13)
--- NOTE | 2017-09-27 11:06 | P.PNIM ---
Subjective Interval history: Follow-up abdominal pain. Patient seen and examined, symptoms have improved overnight. Patient tolerated p.o. intake breakfast without any nausea vomiting or abdominal pain. Patient will be discharged home to follow-up with PCP and GI. Patient has an appointment with the general surgeon on Friday of next week he wants consultation regarding removal of his gallbladder. Vital signs stable. Afebrile. No other complaints. Patient underwent EGD and colonoscopy yesterday no significant findings. Physical Exam Vital signs: Vital Signs 09/26/17 12:00 09/26/17 16:00 09/26/17 16:25 Temperature 96.6 F L 96.1 F L 98.7 F Pulse Rate 74 85 74 Respiratory Rate 16 16 20 Blood Pressure 136/83 137/78 125/75 Pulse Oximetry 96 96 97 09/26/17 18:55 09/26/17 19:10 09/26/17 19:25 Temperature 97.4 F L Pulse Rate 66 60 Respiratory Rate 14 16 16 Blood Pressure 130/68 135/79 149/93 H Pulse Oximetry 97 98 99 09/26/17 20:00 09/27/17 00:00 09/27/17 07:40 Temperature 96.4 F L 97.6 F 97.5 F L Pulse Rate 69 80 84 Respiratory Rate 20 20 20 Blood Pressure 150/94 H 124/86 127/77 Pulse Oximetry 99 97 93 L Intake & Output 09/26/17 09/27/17 09/27/17 18:59 06:59 18:59 Intake Total 100 / 100 510 / 510 Balance 100 / 100 510 / 510 Weight 100.7 kg Intake: IV 150 / 150 LR 1000 mL Inj 1,000 ML @ 30 150 / 150 mls/hr IV.SIG .Q24H [facility] Rx#: [id number] Oral 0 / 0 360 / 360 Anesthesia Amount 100 / 100 Other: # Voids 6 2 # Bowel Movements 5 Narrative: GENERAL: Well-developed, well-nourished patient in [facility]. SKIN: Warm and dry. No rash. HEAD: Normocephalic. Atraumatic. EYES: Pupils equal and round. No scleral icterus. No injection or drainage. ENT: No nasal bleeding or discharge. Mucous membranes pink and moist. NECK: Supple. Trachea midline. CARDIOVASCULAR: Regular rate and rhythm. S1, S2 noted. No murmur appreciated. RESPIRATORY: No accessory muscle use. Clear to auscultation. Breath sounds equal bilaterally. GASTROINTESTINAL: Abdomen soft, nondistended. Normoactive bowel sounds x4. No tenderness to palpation. MUSCULOSKELETAL: No obvious deformities. Extremities without clubbing, cyanosis , or edema. NEUROLOGICAL: Awake and alert. No obvious cranial nerve deficits. Motor grossly within normal limits. 5/5 muscle strength in bilateral upper and lower extremities. Normal speech. PSYCHIATRIC: Appropriate mood and affect; insight and judgment normal. Results - Labs CBC & Chem 7: 09/24/17 06:34 09/24/17 06:34 Laboratory Results - last 24 hr 09/26/17 08:15 Stl C.difficile Tox PCR Negative St C. diff Tox Epid 027 Negative - Procedures See below. Assessment and Plan - Assessment (1) Abdominal pain Code(s): R10.9 - Unspecified abdominal pain Status: Acute (2) Nausea and vomiting Code(s): R11.2 - Nausea with vomiting, unspecified Status: Acute - Plan This is a 56-year-old male patient with: Abdominal pain with associated nausea and vomiting - Unknown etiology. Possibly related to cholelithiasis. - Liver enzymes reviewed, normal. - Abdominal CT reviewed showing possible small gallstone. No biliary tract obstruction. Otherwise unremarkable. - Chest x-ray reviewed showing no acute disease. - Gallbladder ultrasound reviewed showing dilated common bile duct 12 mm. Gallstones present. - Consult placed to gastroenterology, appreciate input and recommendations. - MRCP done showing cholelithiasis without common duct stone. - Control nausea, Zofran available as needed. - Dilaudid IV available as needed per pain scale. Will wean. - EGD and colonoscopy yesterday with no significant findings. Await biopsy. Follow-up GI PCP upon discharge. - Symptoms have improved. - Patient has an appointment with Dr. Park, general surgery, patient is requesting an outpatient consultation for possible removal of his gallbladder. Spoke to Dr. Park. Chest pain, atypical likely related to above. Resolved. - Troponin flat. - EKG reviewed showing controlled heart rate, no ST changes to indicate ischemia. No arrhythmias. - Continue cardiac telemetry, monitor for any arrhythmias. No arrhythmias overnight. - Was given aspirin in ED. Continue on aspirin. Hypertension: Likely secondary to pain. Will monitor blood pressure trends. Alcohol abuse: Encouraged cessation. No signs of withdrawal. Pleasant. DVT prophylaxis: SCDs. Ambulation. Discharge Planning: DC home today. (1) Abdominal pain Qualifiers: Abdominal location: epigastric Qualified Code(s): R10.13 - Epigastric pain (2) Nausea and vomiting Qualifiers: Vomiting type: unspecified Vomiting Intractability: intractable Qualified Code(s): R11.2 - Nausea with vomiting, unspecified
[2017-09-27] MEDS ORDERED: Lidocaine PF 1% Inj 5 ML Syringe INFILTRATN ONE (12:00)
== END 2017-09-27 13:03 | disposition home or self-care (01) ==
LOC: PH3 08:24 → PHEDA 08:24 → PHED 08:24 → PH3 15:52
PROVIDERS: ADMIT Hospitalist; ATTEND Hospitalist
DX: R07.89 Other chest pain; K64.9 Unspecified hemorrhoids; D12.2 Benign neoplasm of ascending colon; F17.210 Nicotine dependence, cigarettes, uncomplicated; K63.5 Polyp of colon; F10.10 Alcohol abuse, uncomplicated; I10 Essential (primary) hypertension; D12.5 Benign neoplasm of sigmoid colon; K57.30 Diverticulosis of large intestine without perforation or abscess without bleeding; K80.20 Calculus of gallbladder without cholecystitis without obstruction